=== PATIENT | male | born 1975 | race Caucasian/White ===

== ENCOUNTER → 2020-06-07 | Outpatient (CLI) | payer BC ==
[~2020-06-07] MED LIST: IOPAMIDOL 370 MG/ML 200 ML INFUS..BTL INJ ONE; SODIUM CHLORIDE 0.9% 50ML 50 ML ONE
== END ==
LOC: CT 09:31
PROVIDERS: ATTEND Internal Medicine Gastroenterology
DX: K42.9 Umbilical hernia without obstruction or gangrene (principal); K51.211 Ulcerative (chronic) proctitis with rectal bleeding; K21.9 Gastro-esophageal reflux disease without esophagitis
CPT/HCPCS: 74177; Q9967